=== PATIENT | female | born 1955 | race Hispanic/Latino ===

== ENCOUNTER → 2018-11-14 | Outpatient (CLI) | payer MEDICARE | END | disposition home or self-care (01) | LOC: RAH 09:26 | PROVIDERS: ATTEND Family Medicine | DX: Z12.31 Encounter for screening mammogram for malignant neoplasm of breast (principal) | CPT/HCPCS: 77067 ==

== ENCOUNTER → 2018-12-24 | Outpatient (CLI) | payer MEDICARE | END | disposition home or self-care (01) | LOC: RAH 07:44 | PROVIDERS: ATTEND Physical Medicine & Rehabilitation | DX: M48.02 Spinal stenosis, cervical region (principal) | CPT/HCPCS: 72052 ==

== ENCOUNTER → 2019-02-05 | Outpatient (CLI) | payer MEDICARE ==
[~2019-02-05] VITALS: Ht 157.5 cm; Wt 59.8 kg
[~2019-02-05] MED LIST: ABAC1TAB15 PO; AZIT250T9 PO; BENZ200C53 PO; BUSP7.5T7 PO; CEFAZOLIN SODIUM 1 GM VIAL IVP SCH; FLUT15.88 NS; FLUT1AER IH; LEVO5TAB13 PO; MONT10TA24 PO; OLOP2.5D6 OP; TOTAL B PO; TRAV2.5D OU; VALA100027 PO; [UNRECOGNIZED DRUG - OTHER] PO; [UNRECOGNIZED DRUG - OTHER] PO
[2019-02-05 15:23] VITALS: BP 102/63
--- NOTE | 2019-02-05 15:24 | NUR ---
note dr ruano aware pt is not consenting to blood. he has been notified that patient has been feeling ill. she went to her primary on saturday and was given cold medicine and antibiotics. per dr ruano if patient is still feeling sick by saturday sx will be cancelled. She will call saturday morning if she is not going to come in.
--- NOTE | 2019-02-23 15:27 | NUR ---
PT CX SELF PRIOR TO DOS D/T FLU LIKE SYMPTOMS.
== END | disposition home or self-care (01) ==
LOC: LAB 08:00 → EDSTATUS 02-09 07:30
PROVIDERS: ATTEND Neurological Surgery
DX: G56.01 Carpal tunnel syndrome, right upper limb (principal); Z53.9 Procedure and treatment not carried out, unspecified reason

== ENCOUNTER → 2019-12-07 | Outpatient (CLI) | payer OTHER, MEDICARE ==
[~2019-12-07] MED LIST changes: -CEFAZOLIN SODIUM 1 GM VIAL IVP SCH; +FLUT15.845 NS; -FLUT15.88 NS
== END | disposition home or self-care (01) ==
LOC: RAH 13:00
PROVIDERS: ATTEND Family Medicine
DX: Z12.31 Encounter for screening mammogram for malignant neoplasm of breast (principal)
CPT/HCPCS: 77067

== ENCOUNTER → 2020-01-13 | Outpatient (CLI) | payer OTHER, MEDICARE ==
[~2020-01-13] MED LIST changes: -MONT10TA24 PO; +MONT10TA26 PO; -VALA100027 PO; +VALA100031 PO
== END | disposition home or self-care (01) ==
LOC: RAH 15:00
PROVIDERS: ATTEND Physical Medicine & Rehabilitation
DX: M50.123 Cervical disc disorder at C6-C7 level with radiculopathy (principal); M71.38 Other bursal cyst, other site
CPT/HCPCS: 72141

== ENCOUNTER → 2022-03-23 | Outpatient (CLI) | payer OTHER, MEDICARE ==
[~2022-03-23] MED LIST changes: +MONT-39 PO; -MONT10TA26 PO; +OLOP2.5D16 OP; -OLOP2.5D6 OP
== END | disposition home or self-care (01) ==
LOC: SHCH 13:15
PROVIDERS: ATTEND Student in an Organized Health Care Education/Training Program
DX: I36.1 Nonrheumatic tricuspid (valve) insufficiency (principal); E78.5 Hyperlipidemia, unspecified
CPT/HCPCS: 93306

== ENCOUNTER → 2022-07-16 | Outpatient (CLI) | payer OTHER, MEDICARE ==
[2022-07-16 12:39] LABS: ALBUMIN 3.8 g/dL (3.5-5.0); CREATININE 0.7 mg/dL (0.5-1.5); POTASSIUM 4.1 mmol/L (3.5-5.1)
== END | disposition home or self-care (01) ==
LOC: LAB 09:30
PROVIDERS: ATTEND Student in an Organized Health Care Education/Training Program
DX: J45.909 Unspecified asthma, uncomplicated (principal)
CPT/HCPCS: 36415; 80053

== ENCOUNTER → 2022-07-19 | Outpatient (CLI) | payer OTHER, MEDICARE ==
[~2022-07-19] MED LIST changes: +IOHEXOL 350 MG/ML 100ML INFUS..BTL IV ONE
== END | disposition home or self-care (01) ==
LOC: RAH 07:46
PROVIDERS: ATTEND Student in an Organized Health Care Education/Training Program
DX: G50.1 Atypical facial pain (principal)
CPT/HCPCS: 75574; Q9967

== ENCOUNTER → 2023-10-08 | Outpatient (CLI) | payer OTHER ==
[~2023-10-08] MED LIST changes: +AMOX-429 PO; +FLUT16H NASAL; -IOHEXOL 350 MG/ML 100ML INFUS..BTL IV ONE; +[UNRECOGNIZED DRUG - CODE] PO
[2023-10-08 12:42] LABS: CHOLESTEROL 174 mg/dL (<200); HDL CHOLESTEROL 87 mg/dL (35-85); LDL DIRECT 84 mg/dL (0-99); TRIGLYCERIDES 65 mg/dL (30-200)
== END | disposition home or self-care (01) ==
LOC: LAB 08:08
PROVIDERS: ATTEND Student in an Organized Health Care Education/Training Program
DX: E78.5 Hyperlipidemia, unspecified (principal)
CPT/HCPCS: 36415; 80061

== ENCOUNTER → 2024-01-08 | Outpatient (CLI) | payer OTHER ==
[~2024-01-08] MED LIST changes: +IOHEXOL-350 75 ML VIAL IV ONE
== END | disposition home or self-care (01) ==
LOC: RAH 08:37
PROVIDERS: ATTEND Internal Medicine Gastroenterology
DX: K57.90 Diverticulosis of intestine, part unspecified, without perforation or abscess without bleeding (principal); R10.32 Left lower quadrant pain; M47.815 Spondylosis without myelopathy or radiculopathy, thoracolumbar region
CPT/HCPCS: 74178; Q9967